=== PATIENT | male | born 1945 | race Caucasian/White ===

== ENCOUNTER 2023-02-08 04:59 | Day surgery (SDC) | payer BC, OTHER ==
[2023-02-03 16:20] VITALS: BMI 24.4
[~2023-02-08 04:59] MED LIST: BUPIVACAINE HCL/PF 0.5% (5MG/ML) 10 ML VIAL ONE
[2023-02-08] MEDS ORDERED: BUPIVACAINE HCL/PF 0.25% (2.5MG/ML) 10 ML VIAL ONE (10:58)
[2023-02-08] MEDS ORDERED: MICROFIBRILLAR COLLAGEN 1 GM EACH TP ONE ×2 (11:05→12:48)
[2023-02-08] MEDS ORDERED: MIDAZOLAM HCL 2 MG/2 ML SINGLE DOSE VIAL ONE (11:05)
[2023-02-08] MEDS ORDERED: BUPIVACAINE HCL/PF 0.25% (2.5MG/ML) 10 ML VIAL IJ ONE ×2 (11:07→12:13)
[2023-02-08] MEDS ORDERED: ACETAMINOPHEN INJECTION 100 ML IVPB ONE (11:12)
[2023-02-08] MEDS ORDERED: PROPOFOL 40 ML ONE (11:57)
[2023-02-08] MEDS ORDERED: cefOXitin SODIUM 1 GM VIAL (RESTRICTED TO ID) IVPB ONE (12:07)
[2023-02-08] MEDS ORDERED: cefOXitin SODIUM 2 GM VIAL (RESTRICTED TO ID) IVPB ONE (12:07)
[2023-02-08] MEDS ORDERED: oxyCODONE HCL 5 MG TABLET PO PRN (13:11)
[2023-02-08] MEDS ORDERED: ONDANSETRON 4 MG/2 ML VIAL IVPUSH PRN (13:11)
[2023-02-08] MEDS ORDERED: LACTATED RINGERS SOLUTION 1,000 ML IV SCH (13:15)
[2023-02-08] MEDS ORDERED: hydrALAZINE HCL 20 MG/ML VIAL ONE (13:27)
[2023-02-08] MEDS ORDERED: hydrALAZINE HCL 20 MG/ML VIAL IVPUSH ONE ×2 (13:29→13:53)
[2023-02-08 15:30] VITALS: TEMP 97.7
[2023-02-08 17:43] VITALS: BP 147/68; PULSE 101; RESP 18
== END 2023-02-08 17:20 | disposition home or self-care (01) ==
LOC: JASU-SURG 04:59
PROVIDERS: ATTEND Surgery
PROC: 06BY0ZC Excision of Hemorrhoidal Plexus, Open Approach (ICD-10-PCS; principal; 2023-02-08 11:30)
DX: K64.2 Third degree hemorrhoids (principal)
CPT/HCPCS: 94760